=== PATIENT | male | born 1960 | race Caucasian/White ===

== ENCOUNTER 2020-01-10 17:39 | Outpatient (REF) | payer OTHER, SELFPAY | END 2020-01-10 17:40 | disposition home or self-care (01) | LOC: HO.LNP 17:39 | PROVIDERS: Visit Provider Internal Medicine | DX: Z20.828 Contact with and (suspected) exposure to other viral communicable diseases (principal) | CPT/HCPCS: U0003 ==

== ENCOUNTER 2020-09-11 13:27 | Outpatient (REF) | payer OTHER, SELFPAY ==
--- NOTE | ~2020-09-11 | XR_ITS ---
EXAMINATION: XR HIP, LEFT CLINICAL INFORMATION: Pain COMPARISON: None TECHNIQUE: Two views of the left hip. FINDINGS: Bones and soft tissues are normal. No fracture. Alignment is anatomic. Hip joint space is maintained. XR/XR hip LT min 2V IMPRESSION: Normal left hip.
[2020-09-11 13:49] LABS: MANUAL DIFF FLAG NO
[2020-09-11 13:52] LABS: Basophils Percent Auto 0.7 % (0-2); Eosinophils Absolute Auto 0.1 X10*3/uL (0.0-0.4); Eosinophils Percent Auto 2.3 % (0-4); Hematocrit 42.1 % (42-52); Hemoglobin 14.6 g/dl (14.0-18.0); Lymphocytes Absolute Auto 1.4 X10*3/uL (1.2-4.9); Lymphocytes Percent Auto 32.1 % (20-40); Mean Corpuscular HGB Conc 34.7 g/dl (31.0-36.0); Mean Corpuscular Hemoglobin 32.2 pg (27.0-33.0); Mean Corpuscular Volume 92.7 fL (80-98); Mean Platelet Volume 10.9 fL (9.4-12.4); Monocytes Absolute Auto 0.4 X10*3/uL (0.1-1.2); Monocytes Percent Auto 9.9 % (2-11); Neutrophils Absolute Auto 2.4 X10*3/uL (2.0-8.3); Platelet Count 202 X10*3/uL (160-400); Red Blood Count 4.54 X10*6/uL (4.60-5.80); Red Cell Distribution Width 12.6 % (11.0-16.0); White Blood Count 4.3 X10*3/uL (4.8-10.8)
[2020-09-11 14:20] LABS: Alanine Aminotransferase 69 U/L (0-40); Albumin Level 4.5 g/dL (3.5-5.0); Alkaline Phosphatase 65 U/L (39-117); Anion Gap 20 (12-20); Aspartate Amino Transferase 71 U/L (5-37); Bilirubin Total 0.9 mg/dL (0.0-1.0); Blood Urea Nitrogen 9 mg/dL (9-16); Calcium 9.8 mg/dL (8.4-10.2); Carbon Dioxide 23 mmol/L (22-29); Chloride 101 mmol/L (96-108); Cholesterol 286 mg/dL; Estimated Glomerular Filt Rate > 60; Glucose Fasting 100 mg/dL (60-99); HDL Cholesterol 61 mg/dL; LDL Cholesterol Calculated 211 mg/dl; Potassium 4.7 mmol/L (3.3-5.1); Sodium 139 mmol/L (135-145); Total Protein 7.6 g/dL (6.5-8.0); Triglycerides 74 mg/dL
[2020-09-11 14:40] LABS: Prostate Specific Antigen 1.13 ng/mL (<0.05-4.0)
[2020-09-11 15:31] LABS: Glucose Urine UA NEG (NEG); Leukocyte Esterase Urine NEG (NEG); Nitrite Urine NEG (NEG); Specific Gravity - Urine >= 1.030 (1.005-1.025); Urine Blood NEG (NEG); Urine Ketones >=80 MG/DL (NEG); Urine Protein TRACE MG/DL (NEG-TRACE)
[2020-09-11 15:33] LABS: Appearance Urine CLEAR; Color Urine YELLOW
== END 2020-09-11 13:28 | disposition home or self-care (01) ==
LOC: HO.LAB 13:27
PROVIDERS: PCP Internal Medicine; Visit Provider Internal Medicine
DX: Z00.00 Encounter for general adult medical examination without abnormal findings (principal); Z12.5 Encounter for screening for malignant neoplasm of prostate; R10.9 Unspecified abdominal pain; M25.552 Pain in left hip
CPT/HCPCS: 36415; 73502; 80053; 80061; 81003; 84153; 85025; 86140

== ENCOUNTER 2020-10-04 07:11 | Outpatient (REF) | payer OTHER, SELFPAY ==
--- NOTE | ~2020-10-04 | CT_ITS ---
EXAMINATION: CT ABDOMEN AND PELVIS WITHOUT CONTRAST CLINICAL INFORMATION: Left lower quadrant pain. COMPARISON: None TECHNIQUE: Multidetector volumetric imaging was performed from the superior aspect of the liver through the pubic symphysis. Sagittal and coronal reformatted images were obtained on the technologist's workstation. This CT examination was performed using dose optimization techniques as appropriate, variously including the following: *Automated exposure control *Adjustment of mA and/or kV according to patient size (this includes techniques or standardized protocols for targeted exams where dose is matched to indication/reason for exam; i.e. extremities or head) *Use of iterative reconstruction technique DLP: 463 mGy-cm FINDINGS: LUNG BASES: The visualized lung bases are unremarkable. LIVER, GALLBLADDER, AND BILIARY TREE: The liver is normal in size, shape, and attenuation. No focal hepatic lesion or biliary ductal dilatation is present. The gallbladder is unremarkable with no evidence of radiopaque gallstones, gallbladder wall thickening, or obvious pericholecystic inflammatory changes. PANCREAS: Unremarkable. SPLEEN: Unremarkable. ADRENAL GLANDS: Unremarkable. KIDNEYS AND URETERS: The kidneys are normal in size, shape, and attenuation. No hydronephrosis, hydroureter, or calculi seen. No perinephric stranding. BLADDER: Partially distended and unremarkable. GASTROINTESTINAL TRACT: Sigmoid diverticulosis without evidence of acute diverticulitis. No bowel wall thickening or associated inflammatory change. No small or large bowel obstruction. Unremarkable appendix. PERITONEAL CAVITY: No intra-abdominal free air or free fluid. No intra-abdominal mass or organized fluid collection/abscess formation. ABDOMINAL WALL: No significant hernia is appreciated. LYMPH NODES: Subcentimeter retroperitoneal lymph nodes. No significant lymphadenopathy. VASCULAR: No abdominal aortic dilatation. Scattered atherosclerotic calcifications. Unremarkable IVC. PELVIC VISCERA: The prostate and seminal vesicles are unremarkable. OSSEOUS STRUCTURES: No concerning lytic or blastic osseous lesion. CT/CT abdomen pelvis wo con IMPRESSION: 1. Diverticulosis without evidence of acute diverticulitis. No small or large bowel obstruction. Unremarkable appendix. 2. No intra-abdominal mass, lymphadenopathy, or ascites. 3. No findings to explain the patient's pain.
== END 2020-10-04 07:12 | disposition home or self-care (01) ==
LOC: HO.CT 07:11
PROVIDERS: PCP Internal Medicine; Visit Provider Internal Medicine
DX: R10.32 Left lower quadrant pain (principal)
CPT/HCPCS: 74176

== ENCOUNTER 2023-07-29 14:34 | Outpatient (REF) | payer OTHER, SELFPAY ==
--- NOTE | ~2023-07-29 | XR_ITS ---
EXAMINATION: XR BILATERAL FEET CLINICAL INFORMATION: Assess bunions. COMPARISON: None available. TECHNIQUE: 3 views of each foot. FINDINGS: RIGHT FOOT: Bones are diffusely demineralized. Small plantar calcaneal spur. Advanced degenerative changes in the tarsometatarsal joints with hypertrophic change. Severe degenerative changes in the first metatarsophalangeal joint with medial soft tissue bunion. LEFT FOOT: Bones are diffusely demineralized. Small plantar calcaneal spur. Advanced degenerative changes in the tarsometatarsal joints with hypertrophic change. Severe degenerative changes in the first metatarsophalangeal joint with medial soft tissue bunion. 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
--- NOTE | ~2023-07-29 | XR_ITS ---
EXAMINATION: XR BILATERAL FEET CLINICAL INFORMATION: Assess bunions. COMPARISON: None available. TECHNIQUE: 3 views of each foot. FINDINGS: RIGHT FOOT: Bones are diffusely demineralized. Small plantar calcaneal spur. Advanced degenerative changes in the tarsometatarsal joints with hypertrophic change. Severe degenerative changes in the first metatarsophalangeal joint with medial soft tissue bunion. LEFT FOOT: Bones are diffusely demineralized. Small plantar calcaneal spur. Advanced degenerative changes in the tarsometatarsal joints with hypertrophic change. Severe degenerative changes in the first metatarsophalangeal joint with medial soft tissue bunion. XR/XR foot RT min 3V IMPRESSION: Severe degenerative changes in the bilateral first metatarsophalangeal joints.
[2023-07-29 15:11] LABS: MANUAL DIFF FLAG NO
[2023-07-29 15:23] LABS: Basophils Percent Auto 0.2 % (0-2); Eosinophils Absolute Auto 0.1 X10*3/uL (0.0-0.4); Eosinophils Percent Auto 1.8 % (0-4); Hematocrit 41.5 % (42.0-52.0); Hemoglobin 13.5 g/dl (14.0-18.0); Imm Gran Abs Auto 0.01 X10*3/uL (0.00-0.03); Imm Gran Pct Auto 0.2 % (0.0-0.4); Lymphocytes Absolute Auto 1.2 X10*3/uL (1.2-4.9); Lymphocytes Percent Auto 26.6 % (20-40); Mean Corpuscular HGB Conc 32.5 g/dl (31.0-36.0); Mean Corpuscular Hemoglobin 29.5 pg (27.0-33.0); Mean Corpuscular Volume 90.8 fL (80.0-98.0); Monocytes Absolute Auto 0.3 X10*3/uL (0.1-1.2); Monocytes Percent Auto 5.6 % (2-11); Neutrophils Absolute Auto 2.9 x10*3/uL (2.0-8.3); Neutrophils Percent Auto 65.6 % (45-73); Platelet Count 189 X10*3/uL (160-400); Red Blood Count 4.57 X10*6/uL (4.60-5.80); Red Cell Distribution Width 14.2 % (11.0-16.0); White Blood Count 4.5 X10*3/uL (4.8-10.8)
[2023-07-29 16:01] LABS: Alanine Aminotransferase 26 U/L (0-40); Albumin Level 4.3 g/dL (3.5-5.0); Alkaline Phosphatase 78 U/L (39-117); Anion Gap 12 (12-20); Aspartate Amino Transferase 35 U/L (5-37); Bilirubin Total 0.5 mg/dL (0.0-1.0); Blood Urea Nitrogen 20 mg/dL (9-16); Calcium 9.7 mg/dL (8.4-10.2); Carbon Dioxide 28 mmol/L (22-29); Chloride 104 mmol/L (96-108); Cholesterol 189 mg/dL (<200); Estimated Glomerular Filt Rate > 60; Glucose Fasting 108 mg/dL (60-99); HDL Cholesterol 74 mg/dL (>40); LDL Cholesterol Calculated 105 mg/dL (<100); Potassium 3.9 mmol/L (3.3-5.1); Sodium 140 mmol/L (135-145); Total Protein 7.4 g/dL (6.5-8.0); Triglycerides 51 mg/dL (<150)
[2023-07-29 16:19] LABS: Free T4 (Free Thyroxine) 0.88 ng/dL (0.71-1.85); Thyroid Stimulating Hormone 0.84 uIU/mL (0.32-4.0)
[2023-07-29 16:21] LABS: Prostate Specific Antigen 0.87 ng/mL (<0.05-4.0)
== END 2023-07-29 14:35 | disposition home or self-care (01) ==
LOC: HO.XRAY 14:34
PROVIDERS: PCP Internal Medicine; Visit Provider Internal Medicine
DX: I47.10 Supraventricular tachycardia, unspecified (principal); I35.0 Nonrheumatic aortic (valve) stenosis; M21.612 Bunion of left foot; M21.611 Bunion of right foot; Z12.5 Encounter for screening for malignant neoplasm of prostate
CPT/HCPCS: 36415; 73630; 80053; 80061; 84153; 84439; 84443; 85025

== ENCOUNTER 2023-08-12 14:31 | Outpatient (AMB) | payer OTHER, SELFPAY ==
--- NOTE | 2023-08-12 14:35 | A.OFFVIS_ITS ---
Vital Signs 08/12/23 14:36 Height 5 ft 10 in Weight 150 lb BMI 21.5 BP 152/84 H Blood Pressure Location Rt brachial Position Sitting Pulse 63 Intake Visit Reasons: abdominal wall hernia Intake Note: This patient was referred by Dr. Dubois for an assessment for abdominal wall hernia. Pt c/o; reports pain/discomfort. 10/04/2020: abd/pelvis Ct Learning And Development Associate Required: No Accompanied by: Self / Same As Patient Allergies No Known Allergies Allergy (Verified 08/12/23 14:45) Medication List - Last Reconciled 08/12/23 by Jeevan Rivas MD No Known Home Meds HPI HPI abdominal wall hernia: Details: 62-year-old male referred for a inguinal hernia. He says this has had this reducible mass on his left groin area for about 2 months now. He describes some burning discomfort with this. He says that this sometimes gets bigger but he would be able to reduce this on his own. He denies GI complaints He says that he had fallen at home on 3 years ago and had broken his ribs. He said he had a CAT scan done at nighttime in [facility] and he was told he may have other hernias He says that the only 1 that he actually notices this is the 1 on the left groin. [facility] Medical History (Updated 08/12/23 @ 15:12 by Jeevan Rivas MD) Reducible left inguinal hernia Surgical History Hx of varicose vein ligation and stripping Hx of hand surgery H/O colonoscopy Social History Patient Tobacco Use Status: Never used Tobacco Review of Systems Const Denies chills and Denies fever(s) Card Denies chest pain, Denies dyspnea and Denies dyspnea on exertion Resp Denies cough, Denies dyspnea and Denies dyspnea on exertion GI Denies hematochezia and Denies change in bowel habits Denies hematuria and Denies difficulty urinating Musc Denies back pain and Denies limited range of motion Neuro Denies focal weakness and Denies convulsions Psych Denies depression and Denies mood swings Physical Exam Vital Signs: Last Vital Signs Pulse 63 08/12/23 14:36 BP 152/84 H 08/12/23 14:36 BMI result Body Mass Index 21.5 Const General: comfortable and no acute distress Orientation/consciousness: patient oriented x3 Neck Neck: Yes no lymphadenopathy Resp Auscultation: clear to auscultation bilaterally Cardio Rhythm: regular rhythm GI Other: Reducible left inguinal hernia, noticeable with Valsalva Palpation (GI): Soft to palpation, nontender and no guarding Neuro General: patient oriented x3 Assessment & Plan Assessment & Plan (1) Reducible left inguinal hernia: Code(s): K40.90 - Unilateral inguinal hernia, without obstruction or gangrene, not specified as recurrent Category: Medical Plan He has a reducible left inguinal hernia. He describes some discomfort with this. He is very active and wants this repaired. I explained him the technique of repair of the left inguinal hernia hernia with mesh placement. I explained the risks including but not limited to bleeding and infections, injury, recurrence, postop pain, as well as the benefits and alternatives. He wants to proceed. He also is aware of what to expect postoperatively. He says that despite him being told many years ago that he had other hernias, he only wants the left inguinal hernia repaired at this time. Coding Level of Care Code New Pt Level 3 (39383) Diagnoses Reducible left inguinal hernia K40.90
[2023-08-12 14:36] VITALS: BP 152/84; PULSE 63; BMI 21.5
== END 2023-08-12 15:10 | disposition home or self-care (01) ==
PROVIDERS: PCP Internal Medicine; Referring Provider Internal Medicine; Visit Provider Surgery
DX: K40.90 Unilateral inguinal hernia, without obstruction or gangrene, not specified as recurrent (principal)
CPT/HCPCS: 99204

== ENCOUNTER → 2023-08-12 14:31 | Outpatient (BNVA) | payer OTHER, SELFPAY | PROVIDERS: PCP Internal Medicine; Referring Provider Internal Medicine; Visit Provider Surgery ==

== ENCOUNTER 2023-08-28 07:28 | Day surgery (SDC) | payer MEDICARE, OTHER, SELFPAY ==
--- NOTE | 2023-08-18 14:24 | HP_ITS ---
DATE OF SERVICE: 08/28/2023 HISTORY OF PRESENT ILLNESS: The patient is a 62-year-old male who is seen in the office on 07/29/2023 for a periodic checkup and evaluation of the left abdominal wall hernia. He was subsequently referred to Surgery and is planning surgery in the first week of August. PAST MEDICAL HISTORY: Significant for bunions, diverticulosis, hemorrhoids, SVT on and off since the young age. ALLERGIES: HE HAS NO ALLERGIES TO MEDICINES. MEDICATIONS: He is also presently not on any medicines. He has a colonoscopy scheduled for November 2023. REVIEW OF SYSTEMS: He has lost 30 pounds since last visit 3 years ago. No fevers, chills, or sweats. No headaches or dizziness. No voice changes. No peripheral edema. No chest pain. Some palpitations occasionally. No respiratory complaints. Some heartburn occasionally. No abdominal pain, diarrhea, or constipation. No urinary complaints. No joint complaints except for the bunion in his feet. No speech, confusion, or memory changes. Sleep does get disrupted. Appetite is normal. He does get seasonal allergies. No skin complaints. FAMILY HISTORY: Mother is 95. Father has . He has 2 sisters and a twin brother. SOCIAL HISTORY: He is , has 2 children. PHYSICAL EXAMINATION: GENERAL: He is awake and alert, in no distress. VITAL SIGNS: Temperature 97.3, pulse 66, respirations 12, blood pressure 120/80, 97% oxygen saturation on room air. Weight is 154, height is 5 feet 10 inches. HEENT: Clear. NECK: Supple. No lymph nodes, bruits, or masses. HEART: Sounds S1 and S2. Regular rate. LUNGS: Clear. ABDOMEN: Soft and nontender. He has a left abdominal wall hernia. EXTREMITIES: No clubbing, cyanosis, or edema. He has bilateral bunions. Pulses 2+ and equal bilaterally. No evidence of bruising. NEUROLOGIC: Appropriate affect. Awake, alert, and oriented x3. Cranial nerves II through XII intact. He is a nonsmoker. ASSESSMENT AND PLAN: He is medically stable for the proposed surgical procedure, the hernia repair. I will be available if any questions regarding medical care. Nick Dubois MD FC/MITALIL / [phone]
[2023-08-18 15:31] VITALS: BMI 21.5
--- OUTSIDE RECORDS SUMMARY | 2023-08-28 07:30 | XMS_ITS | Continuity of Care Document ---
Author Organization [facility] Address Unknown Care Team Providers Care Supervisor Contingents Name Role Phone Jeevan Dubois MD Primary Care Physician Encounter [facility] Date(s): 04/30/21 - 05/30/21 [facility] Attending Physician: Rubio Alcazar Admitting Physician: AdmRubio zazueta Referring Physician: Admtr, Ar8 Allergies, Adverse Reactions, Alerts No Known Medication Allergies
--- OUTSIDE RECORDS SUMMARY | 2023-08-28 07:31 | XMS_ITS | Patient Health Record ---
Author Organization [facility] Address [address] [place] [id number] Care Team Providers Care Card Table Attendant Name Role Phone Jeevan Dubois MD Primary Care Provider Dean Giraldo [phone] ALLERGIES No Known Allergies REASON FOR REFERRAL No Information IMMUNIZATIONS Vaccine Route Administration Date Status Comme nts Influenza Unknown 10/24/2020 Administered SOCIAL HISTORY Tobacco Use: Social History Observation Description Date Details (start date - stop date) Never Smoker NA - NA Sex Assigned At : Social History Observation Description Sex Assigned At Unknown Tobacco Use/Smoking Question Answer Notes Patient is a nonsmoker Alcohol Screen Question Answer Notes Did you have a drink contain ing alcohol in the past year? Yes How often did you have a dri nk containing alcohol in the past year? Never (0 point) How many drinks did you have on a typical day when you were drinking in the past year? 1 or 2 drinks (0 point) How often did you have 6 or more drinks on one occasion in the past year? Never (0 point) Points 0 Interpretation Negative PROBLEMS Problem Type ICD Code Onset Dates Problem Status W/U Status Risk SNOMED Code Notes Problem Elevated liver function tests (R79.89) Active confirmed 166760938 Problem Encounter for screening for malignant neoplasm of colon (Z12.11) Active confirmed [id number] Encounters Encounter Location Date Provider Diagnosis [facility] [address] [place] [id number] 07/24/2023 Dean Brandt Elevated liver function tests R79.89 ASSESSMENTS Encounter Date Diagnosis Assessment Notes Treatment Notes Treatment Clinical Notes 07/24/2023 Elevated liver function tests (ICD-10 - R79.89) PLAN OF TREATMENT Pending Test Test Name Order Date LIVER PROFILE 01/10/2021 LIVER PROFILE 07/24/2023 Future Test Test Name Order Date COLONOSCOPY 01/10/2021 Next Appt Details Provider Name:Dean Brandt , 12/15/2023 11:10:00 AM, [address], [address], [place], [address], Insurance Providers Payer Name Payer Address Payer Phone Subscriber Number Group Number Insured Name Patient Relationship to Insured Coverage Start Date Coverage End Date [employer] [address] [place] [address] [id number] MICHAEL RENDON Self - patient is the insured MEDICAL (GENERAL) HISTORY Medical History History ICD Code Denies [place],DM,CVA,Lung disease,renal dise ase Neg. screening colonoscopy in [facility] at age 48 Hx of what sounds like SVT's during vigorous exercise-hasn't happened since 2018 Slightly elevated LFTs in [place] of 2020--normal CT scan of liver--liver workup is currently pending as of the 12/2020 OV. The elevated LFTs may be due to some fatty liver in relation to some weight gain and elevated cholesterol. Surgical History Surgery Date(Month/Year) Severed finger from a saw, but reattache d 2019
--- OUTSIDE RECORDS SUMMARY | 2023-08-28 07:31 | XMS_ITS | Continuity of Care Document ---
Author Organization [facility] Address Unknown Care Team Providers Care Revenue Collector Name Role Phone Jeevan Dubois MD Primary Care Physician Encounter [facility] Date(s): 04/24/21 - 05/30/21 [facility] Attending Physician: Maria Dolores NATION MD, Mesfin T Referring Physician: Jeevan Dubois MD Allergies, Adverse Reactions, Alerts No Known Medication Allergies
[2023-08-28 07:57] VITALS: BP 136/79; PULSE 49; RESP 16; TEMP 36.3; O2SAT 100
[2023-08-28 08:02] VITALS: BMI 21.4
[2023-08-28] MEDS: Lactated Ringers 1,000 ML 80 ML IVCONT (08:04)
--- NOTE | 2023-08-28 08:14 | P.CONAN_ITS ---
HPI - Anesthesia Eval Consult details Narrative: 63 yo male patienr for repair of reducible Left inguinal hernia with mesh PMFSH Active Problems Active Problems: All Active Problems Reducible left inguinal hernia (Acute) Past Medical History Medical History Arthritis SVT (supraventricular tachycardia) Palpitations Reducible left inguinal hernia Family History Family history of problems with anesthesia: No Surgical History Surgical History Hx of varicose vein ligation and stripping Hx of hand surgery H/O colonoscopy History of Problems with Anesthesia: No Social History Social History (Updated 08/28/23 @ 08:31 by Cristina Stubbs MD) Are you a primary care transition coordinator to a significant other at home: No Do you presently have visiting nurse or other home services: No Patient Tobacco Use Status: Current everyday Tobacco user Substance Use Type: Marijuana Meds Allergies Allergy/AdvReac Type Severity Reaction Status Date / Time No Known Allergies Allergy Verified 08/28/23 07:49 Active Medications: Current Medications Lactated Ringer's (Lr) 1,000 mls @ 80 mls/hr IVCONT .[id number] REENA Last Admin: 08/28/23 08:04 Dose: 80 mls/hr Exam Height,Weight and Vital Signs: Height 5 ft 10 in Weight 67.585 kg Last Vital Signs Temp 97.4 F 08/28/23 07:57 Pulse 49 L 08/28/23 07:57 Resp 16 08/28/23 07:57 BP 136/79 08/28/23 07:57 Pulse Ox 100 08/28/23 07:57 O2 Del Method Room Air 08/28/23 07:57 Airway Mallampati Class: II TM Dist: >3cm Neck ROM: Full Loose/Missing/Broken Teeth: Yes (Broken/chipped and missing teeth all over. Denies loose teeth) Heart: RRR Lungs: CTAB Assessment and Plan Assessment Anesthesia Assessment: Anesthesia Plan Discussed and Chart Reviewed Final Anesthetic Review Family History of Problems with Anesthesia: No History of Problems with Anesthesia: No NPO: Yes ASA Class: II Final Preanesthetic Review: No Changes in Pt Med Stat, Meds/Allgs Chart Rev iewed, Consent Obtained/Reviewed and Anes Risks/Benef Reviewed Patient Risk: Intermediate Procedure Risk: Low Anesthetic Plan Anesthetic Plan: GA Disposition: Standard PACU
--- NOTE | 2023-08-28 08:23 | MHC.SHP ---
Pre-Procedural Eval Section A - 24 Hr Update-Section A only Date of Service: 08/28/23 The patient is an INPATIENT: No Changes since office visit: No Cold of Flu in the past 2 weeks, No New Medical Problems, No Changes in Medication and No Patient answered all questions The patient has been examined within 24 hours of the surgical procedure. The History & Physical has been completed within 30 days and I have reviewed it.: Yes Section B - Complete if H&P > 30 days Chief Complaint: Unilateral inguinal hernia, without obstruction or Allergies: Allergies Allergy/AdvReac Type Severity Reaction Status Date / Time No Known Allergies Allergy Verified 08/28/23 07:49 Plan I have reviewed the history and physical and performed a pertinent physical examination on my patient. No changes have occurred unless specified. Time Spent With Patient Time: Total time managing care of this patient today ____ minutes.
--- NOTE | 2023-08-28 10:20 | W.PM.OPN ---
Operative Note Operative Note Date of Service: 08/28/23 Narrative: Preop diagnosis: Left inguinal hernia Postop diagnosis: Left inguinal hernia, indirect Procedure: Repair of left inguinal hernia with mesh Surgeon: Jeevan Rivas MD assistant therapy aide: BRIAN Gant The patient is a 63-year-old male with a reducible mass on the left groin consistent with a inguinal hernia. He understood the technique of repair with mesh. He was aware of the risks, benefits, and alternatives. He was brought to the operating room. He was placed supine under general anesthesia via laryngeal mask airway. The left groin was prepped and draped in usual sterile fashion. A surgical time-out was done. The patient received cefazolin 2 g IV preoperatively I infiltrated the planned line of incision with lidocaine 1%. I made a short incision on the skin along an imaginary line from the anterior superior iliac spine to the pubic ramus using blade 15. This was carried down with electrocautery through the full-thickness of the skin and subcutaneous fat to visualize the external oblique aponeurosis. I bluntly dissected the aponeurosis to expose the external ring. I made an incision on the aponeurosis using blade 15 and this was extended inferomedially to connect with the external ring. I did blunt dissection of the underside of the aponeurosis to create space for the mesh. The spermatic cord was seen. I bluntly dissected the cord with a finger until was able to pass a [place] drain around this. The [place] drain was used for retraction. I identified the vas deferens and the accompanying vessels. I was able to visualize the hernia sac and this was carefully and bluntly dissected from the rest of the cord contents down to the internal ring. The sac was reduced through the internal ring. I reinforced the internal ring with a small-sized Prolene plug. The plug was secured to the ring using the inner leaves of the mesh to the shelving edge of the inguinal ligament and the internal oblique superiorly medially with Prolene 2 sutures A keyhole mesh was then positioned to reinforced the entire floor. The tails of the mesh were passed around the cord at the level of the internal ring and were secured together with Prolene 2 sutures. The mesh was secured to the shelving edge of the inguinal ligament laterally, internal oblique superiorly and medially and to the pubic ramus inferomedially. Hemostasis was then observed. Once hemostasis was confirmed, I reapposed the external oblique aponeurosis with a running Polysorb 2-0 stitch to re-create the external ring The sub cutaneous layer was reapposed with Polysorb 3-0 interrupted sutures. Skin closure was achieved with Polysorb 4-0 subcuticular running stitch. The incision was then infiltrated with Marcaine 0.5% for postop analgesia. Dressings were applied. The procedure was then completed The patient tolerated the procedure well. There were no immediate complications. Initial and final counts of sponges and instruments were correct. Estimated blood loss was minimal. The patient was extubated without difficulty and transferred to the recovery room with stable vital signs
[2023-08-28 10:39] VITALS: BP 104/63; PULSE 45; RESP 12; TEMP 36.3; O2SAT 100
[2023-08-28 10:44] VITALS: BP 107/67; PULSE 47; RESP 12; O2SAT 100
[2023-08-28 10:49] VITALS: BP 109/57; PULSE 48; RESP 12; O2SAT 100
[2023-08-28 10:54] VITALS: BP 109/63; PULSE 56; RESP 16; O2SAT 100
[2023-08-28 11:09] VITALS: BP 124/73; PULSE 49; RESP 20; TEMP 36.7; O2SAT 100
== END 2023-08-28 11:38 | disposition home or self-care (01) ==
PROVIDERS: PCP Internal Medicine; Visit Provider Surgery
PROC: (CPT 49505; principal; 2023-08-28 09:40)
DX: K40.90 Unilateral inguinal hernia, without obstruction or gangrene, not specified as recurrent (principal); I47.10 Supraventricular tachycardia, unspecified; M19.90 Unspecified osteoarthritis, unspecified site; R00.2 Palpitations; Z98.890 Other specified postprocedural states; F17.200 Nicotine dependence, unspecified, uncomplicated
CPT/HCPCS: 49505; C1781; J0131; J0690; J1100; J2250; J2405; J2704; J2795; J3010

== ENCOUNTER → 2023-08-28 07:28 | Outpatient (BNV) | payer MEDICARE, OTHER, SELFPAY | PROVIDERS: PCP Internal Medicine; Visit Provider Surgery | DX: K40.90 Unilateral inguinal hernia, without obstruction or gangrene, not specified as recurrent (principal) | CPT/HCPCS: 49505 ==

== ENCOUNTER 2023-10-01 09:09 | Outpatient (AMB) | payer MEDICARE, OTHER, SELFPAY ==
--- NOTE | 2023-10-01 09:13 | A.OFFVIS_ITS ---
Intake Visit Reasons: s/p hernia surgery Intake Note: This is a telehealth visit s/p Repair of left inguinal hernia with mesh. Patient c/o; reports he feels well overall and has no post-op concerns. 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 He tolerated procedure well. He says he feels well overall. Denies any significant pain. He has good GI functions. Denies any recurrent mass. PFSH Medical History Arthritis SVT (supraventricular tachycardia) Palpitations Reducible left inguinal hernia Surgical History Hx of varicose vein ligation and stripping Hx of hand surgery H/O colonoscopy Social History Are you a primary residential care facility manager to a significant other at home: No Do you presently have visiting nurse or other home services: No Patient Tobacco Use Status: Current everyday Tobacco user Substance Use Type: Marijuana Review of Systems Const Denies chills and Denies fever(s) Card Denies chest pain, Denies dyspnea and Denies dyspnea on exertion Resp Denies cough, Denies dyspnea and Denies dyspnea on exertion GI Denies hematochezia and Denies change in bowel habits Denies hematuria and Denies difficulty urinating Musc Denies back pain and Denies limited range of motion Neuro Denies focal weakness and Denies convulsions Psych Denies depression and Denies mood swings Telehealth Telehealth Telehealth Platform: Telephone Location of provider rendering services: practice address Location of patient: address on file Patient Identification confirmed using: Name, : Yes Telehealth method: voice only Patient verbally consented to treatment: Yes Patient verbally consented to billing insurance company: Yes Patient informed of any privacy concerns related to visit: Yes Assessment & Plan Assessment & Plan (1) Reducible left inguinal hernia: Code(s): K40.90 - Unilateral inguinal hernia, without obstruction or gangrene, not specified as recurrent Category: Medical Plan: Status post repair with mesh. He is doing very well he says. He wanted a phone visit instead as he feels well overall. He can return to regular level of activities. He can follow up on a p.r.n. basis. Coding Level of Care Code Global (63128) Diagnoses Reducible left inguinal hernia K40.90
== END 2023-10-01 09:28 | disposition home or self-care (01) ==
LOC: HO.HGS 09:09
PROVIDERS: PCP Internal Medicine; Visit Provider Surgery
DX: K40.90 Unilateral inguinal hernia, without obstruction or gangrene, not specified as recurrent (principal)
CPT/HCPCS: 99024

== ENCOUNTER → 2023-10-01 09:09 | Outpatient (BNVA) | payer MEDICARE, OTHER, SELFPAY | PROVIDERS: PCP Internal Medicine; Visit Provider Surgery | DX: K40.90 Unilateral inguinal hernia, without obstruction or gangrene, not specified as recurrent (principal) | CPT/HCPCS: 99212 ==

== ENCOUNTER 2024-04-18 06:33 | Day surgery (SDC) | payer MEDICARE, OTHER, SELFPAY ==
[2024-04-14 14:00] VITALS: BMI 21.0
[2024-04-18 06:49] VITALS: BMI 24.8
[2024-04-18 06:52] VITALS: BP 161/82; PULSE 57; RESP 16; TEMP 36.6; O2SAT 96
[2024-04-18] MEDS: Lactated Ringers 1,000 ML 80 ML IVCONT (07:08)
--- NOTE | 2024-04-18 07:16 | HO.ANESPROP2 ---
[facility] Active Problems Active Problems: All Active Problems Reducible left inguinal hernia (Acute) Past Medical History Medical History Arthritis SVT (supraventricular tachycardia) Palpitations Reducible left inguinal hernia Family History Family history of problems with anesthesia: No Surgical History Surgical History Hx of left inguinal hernia repair Hx of varicose vein ligation and stripping Hx of hand surgery H/O colonoscopy History of Problems with Anesthesia: No Social History Social History Are you a primary insurance healthcare consultant to a significant other at home: No Do you presently have visiting nurse or other home services: No Patient Tobacco Use Status: Never used Tobacco Use of substances other than those prescribed or required for medical reasons: No Substance Use Type: Marijuana Have you been hit, kicked, punched, or otherwise hurt by someone within the past year? If so, by whom?: No Are you DNR?: No Advance Directives: No Advance Directives Information Provided: No Advance Directives on File: No Recently lost weight without trying: No How much weight loss: Not applicable Eating poorly because of decreased appetite: No Nutrition screen score: 0 Nutrition Risks: No Nutritional Risk Poor oral hygiene: Yes (missing tooth x1) Meds Allergies Allergy/AdvReac Type Severity Reaction Status Date / Time No Known Allergies Allergy Verified 04/18/24 06:43 Active Medications: Current Medications Lactated Ringer's (Lr) 1,000 mls @ 80 mls/hr IVCONT .[id number] [facility] Last Admin: 04/18/24 07:08 Dose: 80 mls/hr Sodium Biphosphate/Sodium Phosphate (Sodium Phosphate,[place]er[place]-Dibasic 133 Ml Enema) 133 ml DE ONCE PRN PRN Reason: Poor Colonoscopy Prep Results Home Medications ?Medication ?Instructions ?Recorded ?Confirmed ?Last Taken ?Type No Known Home Meds 04/14/24 04/18/24 Unknown History Exam Height,Weight and Vital Signs: Height 6 ft Weight 82.9 kg Last Vital Signs Temp 97.8 F 04/18/24 06:52 Pulse 57 04/18/24 06:52 Resp 16 04/18/24 06:52 BP 161/82 H 04/18/24 06:52 Pulse Ox 96 04/18/24 06:52 O2 Del Method Room Air 04/18/24 06:52 Airway Mallampati Class: III TM Dist: >3cm Neck ROM: Full Loose/Missing/Broken Teeth: No Heart: RRR Lungs: CTA Assessment and Plan Assessment Anesthesia Assessment: Anesthesia Plan Discussed and Chart Reviewed Final Anesthetic Review Family History of Problems with Anesthesia: No History of Problems with Anesthesia: No NPO: Yes ASA Class: II Final Preanesthetic Review: Meds/Allgs Chart Reviewed, Consent Obtained/Reviewed and Anes Risks/Benef Reviewed Patient Risk: Low Procedure Risk: Low Anesthetic Plan Anesthetic Plan: MAC: Disposition: Standard PACU
[2024-04-18 08:38] VITALS: BP 106/61; PULSE 55; RESP 16; TEMP 36.1; O2SAT 100
--- NOTE | 2024-04-18 08:39 | PM.OP ---
Brief Operative Note Date of Service: 04/18/24 Pre-op diagnosis: Screening Post-op diagnosis: other (Diverticulosis) Procedure: Colonoscopy to the cecum and TI Surgeon: Dean Brandt MD Anesthesia: MAC Was an Environmental Health Safety Engineer used for this Procedure?: No Estimated blood loss (mL): 0 Pathology: none sent Condition: stable Disposition: PACU
[2024-04-18 08:53] VITALS: BP 117/72; PULSE 52; RESP 16; TEMP 36.1; O2SAT 100
--- NOTE | 2024-04-18 09:44 | OP_ITS ---
DATE OF SERVICE: 04/18/2024 SURGEON: Dean Brandt MD INDICATIONS: The patient presents for evaluation of colorectal cancer screening. Full consent has been obtained from him for this, including risks of bleeding and perforation. PREOPERATIVE DIAGNOSIS: Colorectal cancer screening. POSTOPERATIVE DIAGNOSIS: PROCEDURE PERFORMED: Colonoscopy to the cecum and terminal ileum. ESTIMATED BLOOD LOSS: COMPLICATIONS: ANESTHESIA: Medication used, monitored anesthesia care. ASSISTANTS: SPECIMENS: POSTOPERATIVE DIAGNOSES: Colorectal cancer screening, diverticulosis, and internal hemorrhoids. DESCRIPTION OF PROCEDURE: The patient was placed in the left lateral decubitus position. The digital rectal exam revealed no abnormalities. The Olympus video pediatric colonoscope was entered into the rectum and advanced easily to the cecum. Once in the cecum, I did identify normal-appearing cecal pouch with appendiceal orifice and a normal-appearing ileocecal valve. The terminal ileum was cannulated and appeared normal. Scope was withdrawn back in the colon. The entire cecum and ileocecal valve appeared normal. The scope was slowly withdrawn assessing all mucosal surfaces carefully. Preparation was excellent. I did not visualize any sign of polyps, colitis, nor angiodysplasia. There was a mild amount of sigmoid diverticulosis. In the rectum, scope was retroflexed visualizing internal hemorrhoids but no other pathology. The rectal mucosa appeared normal. Scope was straightened and withdrawn from the patient. He tolerated the procedure well and was returned to the recovery area in stable condition. IMPRESSION: 1. Diverticulosis. 2. Internal hemorrhoids. PLAN: Given today's negative exam and negative family history, I would recommend a repeat colonoscopy in 10 years for further screening. He will otherwise see me on a p.r.n. basis. Dean Brandt MD RMW/MITALIL / [phone]
== END 2024-04-18 09:19 | disposition home or self-care (01) ==
PROVIDERS: PCP Internal Medicine; Visit Provider Internal Medicine
PROC: 0DJD8ZZ Inspection of Lower Intestinal Tract, Via Natural or Artificial Opening Endoscopic (ICD-10-PCS; CPT 45378; principal; 2024-04-18 07:30)
DX: Z12.11 Encounter for screening for malignant neoplasm of colon (principal); K57.30 Diverticulosis of large intestine without perforation or abscess without bleeding; K64.8 Other hemorrhoids; K76.0 Fatty (change of) liver, not elsewhere classified; I47.10 Supraventricular tachycardia, unspecified; Z98.890 Other specified postprocedural states
CPT/HCPCS: G0121; J2003; J2250; J2704

== ENCOUNTER 2024-08-01 13:48 | Outpatient (AMB) | payer MEDICARE, OTHER, SELFPAY ==
--- NOTE | 2024-08-01 13:52 | MHC.PC.OV ---
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 Required: No Accompanied by: Self / Same As Patient Allergies No Known Allergies Allergy (Verified 08/01/24 13:54) Tobacco use date assessed: 08/01/24 Fall risk assessment: No Falls in past year Last assessed Fall Risk: 08/01/24 Dental Screening Dental Screen Date: 08/01/24 Did you have a dental visit in the last 12 months?: Yes Did you have a dental problem in the last 6 months where you did not have access to dental care?: No PFSH Medical History (Updated 08/01/24 @ 14:19 by Binu Oglesby MD) Arthritis SVT (supraventricular tachycardia) Palpitations Reducible left inguinal hernia Surgical History Hx of left inguinal hernia repair Hx of varicose vein ligation and stripping Hx of hand surgery H/O colonoscopy (~04/18/24) Family History (Updated 08/01/24 @ 13:58 by Beatriz Turner MA) Mother No problems noted. Father No problems noted. Social History Housing: House Are you a primary housekeeper child care to a significant other at home: No Do you presently have visiting nurse or other home services: No Patient Tobacco Use Status: Never used Tobacco e-Cigarette/Vaping Use: Never Used Substance Use Type: Marijuana service: No Current occupational status: retired Cognitive needs: No Hearing needs: No Vision needs: No Questionnaire PHQ-9 Over the last 2 weeks, how often have you been bothered by any of the following problems? 1. Little interest or pleasure in doing things: not at all 2. Feeling down, depressed, or hopeless: not at all 3. Trouble falling or staying asleep, or sleeping too much: not at all 4. Feeling tired or having little energy: not at all 5. Poor appetite or overeating: not at all 6. Feeling bad about yourself - or that you are a failure or have let yourself or your family down: not at all 7. Trouble concentrating on things, such as reading the newspaper or watching television: not at all 8. Moving or speaking so slowly that other people could have noticed. Or the opposite - being so fidgety or restless that you have been moving around a lot more than usual: not at all 9. Thoughts that you would be better off or of hurting yourself in some way: not at all Total score: 0 Source: Developed by Drs. Dean Jesus, Kenzie Palacios, Sandro Gu and colleagues, with an educational paul from [employer]. Thrive Questionnaire Date Thrive assessed: 08/01/24 I am a: Patient Within the past 12 months, did the food you bought not last and you didn't have the money to get more?: Never true Within the past 12 months, did you worry whether your food would run out before you got money to buy more?: Never true Do you have trouble paying for medicines?: No Do you have trouble getting transportation to medical appointments?: No Do you have trouble paying your heating and electricity bill?: No Do you have trouble taking care of your child, family member or friend?: No Do you have trouble with day-to-day activities such as bathing, preparing meals, shopping, managing finances, etc.?: No Are you currently unemployed and looking for a job?: No Are you interested in more education?: No THRIVE Score: 0 AUDIT C Alcohol Use Questionnaire (AUDIT-C) 1. How often do you have a drink containing alcohol?: Never 3. How often do you have six or more drinks on one occasion?: Never Total Score: 0 KARON-7 AMB Questionnaire KARON-7 Date KARON - 7 assessed: 08/01/24 Feeling nervous, anxious, or on edge: 0 = Not at all Not being able to stop or control worryin = Not at all Worrying too much about different things: 0 = Not at all Trouble relaxin = Not at all Being so restless that it is hard to sit still: 0 = Not at all Becoming easily annoyed or irritable: 0 = Not at all Feeling afraid as if something awful might happen: 0 = Not at all Total KARON-7 score (0-4 normal; 5-9 mild; 10-14 moderate; 15-21 severe): 0 Source: Developed by Drs. Dean Jesus, Kenzie Palacios, Sandro Gu and colleagues, with an educational paul from [employer]. Physical exam (Primary Care) Vital Signs: Last Vital Signs Temp 97.2 F 08/01/24 13:55 Pulse 54 08/01/24 13:55 BP 122/70 08/01/24 13:55 Pulse Ox 98 08/01/24 13:55 Oxygen Delivery Method Room Air 08/01/24 13:55 BMI result Body Mass Index 22.8 Tobacco/Smoking Status: Tobacco use Status Tobacco use date assessed 08/01/24 08/01/24 13:59 Patient Tobacco Use Status Never used Tobacco 08/01/24 13:59 e-Cigarette/Vaping Use Never Used 08/01/24 13:59 PHQ-9: PHQ-9 Score PHQ-9: Total score 0 08/01/24 13:59 Thrive Assessment: Date of Thrive Assessment Date Thrive assessed 08/01/24 08/01/24 13:59 Coding Level of Care Code New Pt Prev Care >65yr (99129) Diagnoses SVT (supraventricular tachycardia) I47.10 Annual physical exam Z00.00 Assessment & Plan Assessment & Plan (1) SVT (supraventricular tachycardia): Comment: no Rx-follows with Dr. Dubois-saw a Cardiac corrections identification technician in the past, no intervention due to infrequency of SVT Code(s): I47.10 - Supraventricular tachycardia, unspecified Category: Medical Plan: Old records to be reviewed. (2) Annual physical exam: Code(s): Z00.00 - Encounter for general adult medical examination without abnormal findings Plan: History of Present Illness - The patient is a 63-year-old male presenting for a routine physical examination. - A history of supraventricular tachycardia (SVT) involves episodic increases in heart rate during exercise, with prior visits requiring adenosine treatment. - Imaging in the past suggested minimal plaque buildup. - Denies any new or ongoing episodes outside of exercise-induced events. - Routine screenings include a recent colonoscopy in March without any abnormal findings. 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 - Engages in recreational activities like fly fishing and rowing. - Maintains physical activity by hiking with a dog for extended periods. - Dietary habits include restricting meal intake to once a day, typically at night, and minimal consumption of meat. Review of Systems - Cardiovascular: Reports episodes of increased heart rate; denies current palpitations at rest. - Gastrointestinal: Denies changes in bowel habits and reports normal colonoscopy. - Vision: Denies vision problems such as halos; reports passing a vision test recently. Physical Exam General: Cooperative and healthy appearing Nutritional Appearance: Well nourished Orientation/consciousness: Patient oriented x3 Limitations: No limitations Head: Normal to inspection General: Appearance normal, both eyes and all related structures Neck: Normal visual inspection Chest: Normal palpation of entire chest wall Respiratory: N ormal respiratory effort Neurology: Patient oriented x3, history of SVT (Supraventricular Tachycardia), episodes occur during exercise, not life-threatening but advised to monitor due to potential risk of progression to VTI. Results - Labs and blood work planned but not completed during this visit. Plan 1. Supraventricular Tachycardia - Episodes are monitored and managed conservatively unless they escalate in frequency or severity. 2. Minimal Plaque Buildup - Continue routine monitoring and maintain heart-healthy lifestyle practices. Discussion Notes I informed the patient about the [id number] nature of the SVT and discussed the decision to refrain from additional procedural interventions at this time. We agreed that should the frequency or severity of SVT episodes increase, we will revisit potential treatment options. The patient was informed regarding the minimal plaque buildup observed in past imaging and reassured about its current non-significant nature, focusing on maintaining healthy habits. I discussed the planned blood work to monitor prostate health, kidney and liver functions, and glucose levels. Patient Instructions - Follow through with the fasting blood work orders. - Maintain current exercise and diet regimen. - Monitor for any new or worsened symptoms and reach out immediately if they occur. - Schedule next routine check-up as discussed. Orders: Orders Basic Metabolic Panel Today I47.10 - Supraventricular tachycardia, unspecified, Z00.00 - Encounter for general adult medical examination without abnormal findings UA and rflx microscopic Today I47.10 - Supraventricular tachycardia, unspecified, Z00.00 - Encounter for general adult medical examination without abnormal findings Complete Blood Count no Diff Today I47.10 - Supraventricular tachycardia, unspecified, Z00.00 - Encounter for general adult medical examination without abnormal findings Lipid Panel Today I47.10 - Supraventricular tachycardia, unspecified, Z00.00 - Encounter for general adult medical examination without abnormal findings Liver Panel Today I47.10 - Supraventricular tachycardia, unspecified, Z00.00 - Encounter for general adult medical examination without abnormal findings Thyroid Stimulating Hormone Today I47.10 - Supraventricular tachycardia, unspecified, Z00.00 - Encounter for general adult medical examination without abnormal findings
[2024-08-01 13:55] VITALS: BP 122/70; PULSE 54; TEMP 36.2; O2SAT 98; BMI 22.8
--- OUTSIDE RECORDS SUMMARY | 2024-08-01 15:39 | XMS_ITS ---
Author Organization [facility] Address [address] [place] [id number] Care Team Providers Care Nsh Teacher Name Role Phone Jeevan Dubois MD Primary Care Provider Dean Giraldo Unavailable [phone] Allergies No Known Allergies REASON FOR VISIT Patient presents today for a colon screening Social History Tobacco Use: Social History Observation Description Date Details (start date - stop date) Never Smoker NA - NA Tobacco Use/Smoking Question Answer Notes Patient is [...] Never (0 point) Points 0 Interpretation Negative Section Notes: No sig alcohol Problems Problem Type SNOMED Code ICD Code Onset Dates Problem Status W/U Status Risk Notes Problem Pre-procedure evaluation check (320122538) Encounter for other preprocedural examination (Z01.818) Active confirmed Problem Fatty liver (786156095) Fatty liver (K76.0) Active confirmed Vital Signs Blood pressure systolic 00 mm Hg 12/15/19 24 Blood pressure diastolic 00 mm Hg 024 Height 72 in 12/15/2023 Weight 155 lbs 12/15/2023 BMI 21.02 kg/m2 12/15/2023 Encounters Encounter Location Date Provider Diagnosis [facility] [address] [place] [address] 12/15/2023 Dean Brandt Encounter for other preprocedural examination Z01.818 ; Fatty liver K76.0 and Encounter for screening for malignant neoplasm of colon Z12.11 Assessments Encounter Date Diagnosis (ICD Code) Assessment Notes Treatment Notes Treatment Clinical Notes Section Notes 12/15/2023 Encounter for other preprocedural examination (ICD-10 - Z01.818) Overall, Michael appears quite well. I did recommend a colonoscopy for screening purposes given his age, excellent clinical appearance, and his last colonoscopy being about 15 years ago. We did review the rationale for that in regard to colon cancer prevention. Full consent was obtained for this, including risks of bleeding and perforation. The procedure will be done with monitored anesthesia care. We did review the normalization of his previously elevated LFTs with his significant weight loss and improved serum lipids. Given his clinical history this would certainly support the diagnosis of previous fatty liver. I did encourage him to continue his current diet and exercise regimen as that is obviously greatly benefiting him. Michael was comfortable with this plan. Thank you again for allowing me to participate in Michael's care. I shall continue to keep you advised of his progress. 12/15/2023 Fatty liver (ICD-10 - K76.0) Overall, Michael appears quite well. I did recommend a colonoscopy for screening purposes given his age, excellent clinical appearance, and his last colonoscopy being about 15 years ago. We did review the rationale for that in regard to colon cancer prevention. Full consent was obtained for this, including risks of bleeding and perforation. The procedure will be done with monitored anesthesia care. We did review the normalization of his previously elevated LFTs with his significant weight loss and improved serum lipids. Given his clinical history this would certainly support the diagnosis of previous fatty liver. I did encourage him to continue his current diet and exercise regimen as that is obviously greatly benefiting him. Michael was comfortable with this plan. Thank you again for allowing me to participate in Michael's care. I shall continue to keep you advised of his progress. 12/15/2023 Encounter for screening for malignant neoplasm of colon (ICD-10 - Z12.11) Overall, Michael appears quite well. I did recommend a colonoscopy for screening purposes given his age, excellent clinical appearance, and his last colonoscopy being about 15 years ago. We did review the rationale for that in regard to colon cancer prevention. Full consent was obtained for this, including risks of bleeding and perforation. The procedure will be done with monitored anesthesia care. We did review the normalization of his previously elevated LFTs with his significant weight loss and improved serum lipids. Given his clinical history this would certainly support the diagnosis of previous fatty liver. I did encourage him to continue his current diet and exercise regimen as that is obviously greatly benefiting him. Michael was comfortable with this plan. Thank you again for allowing me to participate in Michael's care. I shall continue to keep you advised of his progress. Plan Of Treatment Future Test Test Name Order Date COLONOSCOPY 12/15/2023 Next Appt Details Follow Up: prn, Reason: Progress Notes * MICHAEL RENDON ADOB: [birth year] (63 yo M)Acc No.[id number]:12/15/2023 Progress Notes Patient:?MICHAEL RENDON Provider:?Dean Brandt MD :1960???Age:63 Y???Sex:Male Isaiah e:12/15/2023 Address:[address] [place] [address] [id number] Pcp:Jeevan Dubois MD Subjective: * Chief Complaints: * ???Patient presents today fo r a colon screening * HPI: ???incontinence:? I saw Michael in the office today for evaluation of colorectal cancer screening. ?I last saw Michael in December of 2020. At that time we reviewed his history of diverticulosis and some occasional abdominal discomfort. He also had slightly elevated LFTs at that time. We did schedule him for a followup screening colonoscopy as his only previous exam had been at age 48. However, he had to cancel the colonoscopy and never called back to reschedule. ?In any event, he is currently doing very well. He has lost nearly 40 pounds since that office visit with a regimen of exercise and perhaps eating somewhat more carefully. He presently enjoys a good appetite and denies any significant heartburn or dysphagia. His bowel movements have been regular and without any signs of bleeding. He denies any abdominal pain nor jaundice. ?Since having lost all his weight he now has a normal liver profile as seen with his laboratories from this past July. He also had a significant improvement in his cholesterol. * ROS:?General/Constitutional:?Change in appetite?denies.?Chills?denies.?Fatigue?denies.?Ophthalmologic:?Comments?all negative.?ENT:?Comments?all negative.?Respiratory:?hemoptysis?denies.?Cough?denies.?Cardiovascular:?Chest pain?denies.?Orthopnea?denies.?Gastrointestinal:?Comments?See HPI for details.?Genitourinary:?Hematuria?denies.?Dysuria?denies.?Musculoskeletal:?Painful joints?denies.?Weakness?denies.?Skin:?Itching?denies.?Rash?denies.?Neurologic:?Headache?denies.?Seizures?denies.?Psychiatric:?Comments?all negative.? * Medical History:? * Surgical History:?Severed rupa iraheta from a saw, but reattached 2020Left inguinal hernia repair 08/30/2023 * Hospitalization/Major Diagno stic Procedure:?No Hospitalization History. * Family History:?Father: dece ased, diagnosed with Heart disease.?Mother: alive 96 yrs.? No known hx of colon cancer. * Social History:?Tobacco Use:?Tobacco Use/Smoking?Patient is a?nonsmoker.?Drugs/Alcohol:?Alcohol Screen?Did you have a drink containing alcohol in the past year??Yes,?How often did you have a drink containing alcohol in the past year??Never (0 point),?How many drinks did you have on a typical day when you were drinking in the past year??1 or 2 drinks (0 point),?How often did you have 6 or more drinks on one occasion in the past year??Never (0 point),?Points?0,?Interpretation?Negative.?Miscellaneous:?Exercise: Rowing machine. Marital status: . 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 ???No sig alcohol. * Medications:?None * Allergies:?N.K.D.A.yes[Aller gies Verified] Objective: * Vitals:?Wt: 155 lbs, Ht: 72 in, BMI:21.02 Index, BP: 00/00 mm Hg. * Examination: ???General Examination: ?GENERAL APPEARANCE:?pleasant, well nourished, well developed, in no acute distress.?EYES:?sclera non-icteric.?ORAL CAVITY:?mucosa moist.?NECK/THYROID:?no cervical lymphadenopathy, neck supple.?SKIN:?nonjaundiced, no spider angiomata.?HEART:?S1, S2 normal.?LUNGS:?clear to auscultation bilaterally.?ABDOMEN:?normal bowel sounds, no guarding or rigidity, no guarding or rigidity, no masses palpable, soft, nontender, nondistended.?EXTREMITIES:?no edema.?NEUROLOGIC:?alert and oriented.? Assessment: * Assessment: 1.?Fatty liver - K76.0 (Prim jerson)?2.?Encounter for other preprocedural examination - Z01.818?3.?Encounter for screening for malignant neoplasm of colon - Z12.11? Overall, Michael appears quite well. I did recommend a colonoscopy for screening purposes given his age, excellent clinical appearance, and his last colonoscopy being about 15 years ago. We did review the rationale for that in regard to colon cancer prevention. Full consent was obtained for this, including risks of bleeding and perforation. The procedure will be done with monitored anesthesia care. We did review the normalization of his previously elevated LFTs with his significant weight loss and improved serum lipids. Given his clinical history this would certainly support the diagnosis of previous fatty liver. I did encourage him to continue his current diet and exercise regimen as that is obviously greatly benefiting him. Michael was comfortable with this plan. Thank you again for allowing me to participate in Michael's care. I shall continue to keep you advised of his progress. Plan: * Treatment: * Procedure Codes:?3017F COLOR ECTAL CA SCREEN DOC [id number] TOBACCO [id number] BP SCR NOT PRFRM REC REASON NOS * Preventive Medicine:? ??Screenings:?Fall Risk Screening?Fall Risk Assessment:?No falls in the past year,?Screening:?No falls in the past year,?Assessment:?Not performed, no reason specified,?Plan of Care:?Not documented, no reason specified.? * Follow Up:?prn * * Sign off status: Completed true * Provider:?Dean Brandt MD Date:? 024 Generated for Parag de la rosa/Haleigh/Angelsmrodolfo on:?08/01/2024 03:38 PM EDT History and Physical Notes * HPI (History of Present Illness) Category Sub-Category Detail Notes Category Not es incontinence I saw Michael in the office today for evaluation of colorectal cancer screening. I last saw Michael in December of 2020. At that time we reviewed his history of diverticulosis and some occasional abdominal discomfort. He also had slightly elevated LFTs at that time. We did schedule him for a followup screening colonoscopy as his only previous exam had been at age 48. However, he had to cancel the colonoscopy and never called back to reschedule. In any event, he is currently doing very well. He has lost nearly 40 pounds since that office visit with a regimen of exercise and perhaps eating somewhat more carefully. He presently enjoys a good appetite and denies any significant heartburn or dysphagia. His bowel movements have been regular and without any signs of bleeding. He denies any abdominal pain nor jaundice. Since having lost all his weight he now has a normal liver profile as seen with his laboratories from this past July. He also had a significant improvement in his cholesterol. Examination Category Sub-Category Detail Notes Category Not es General Examination GENERAL APPEARANCE: pleasant , well nourished, well developed, in no acute distress HEAD: EYES: sclera non-icteric EARS: NOSE: THROAT: NECK/THYROID: no cervical lymphade nopathy, neck supple HEART: S1, S2 normal CHEST: LUNGS: clear to auscultatio n bilaterally ABDOMEN: normal bowel sounds, no guarding or rigidity, no guarding or rigidity, no masses palpable, soft, nontender, nondistended NEUROLOGIC: alert and oriented SKIN: nonjaundiced, no spi trang angiomata EXTREMITIES: no edema PERIPHERAL PULSES: BACK: BREASTS: MUSCULOSKELETAL: MALE GENITOURINARY: LYMPH NODES: RECTAL EXAM: FEMALE GENITOURINARY: ORAL CAVITY: mucosa moist
== END 2024-08-01 16:00 | disposition home or self-care (01) ==
LOC: HO.HMCHD 13:49
PROVIDERS: PCP Internal Medicine; Visit Provider Internal Medicine
DX: Z00.00 Encounter for general adult medical examination without abnormal findings (principal); I47.10 Supraventricular tachycardia, unspecified

== ENCOUNTER → 2024-08-01 13:48 | Outpatient (BNVA) | payer MEDICARE, OTHER, SELFPAY | PROVIDERS: PCP Internal Medicine; Visit Provider Internal Medicine | DX: Z00.00 Encounter for general adult medical examination without abnormal findings (principal); I47.10 Supraventricular tachycardia, unspecified | CPT/HCPCS: 99387 ==